=== PATIENT | male | born 2000 | race American Indian/Alaskan Native ===

== ENCOUNTER 2024-10-24 14:27 | Outpatient (AMB) | payer OTHER, SELFPAY ==
--- NOTE | 2024-10-24 14:30 | A.OFFPC_ITS ---
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: No Accompanied by: Self / Same As Patient Allergies No Known Allergies Allergy (Verified 10/30/24 17:40) Medication List - Last Reconciled 10/30/24 by LETY Gonzalez No Known Home Meds Tobacco use date assessed: 10/24/24 Dental Screening Dental Screen Date: 10/24/24 Did you have a dental visit in the last 12 months?: No Did you have a dental problem in the last 6 months where you did not have access to dental care?: No Was dental information given to patient?: Patient has dentist HPI 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 HPI Details Previous PCP: A while, last time 2016 Last visit: 2016 Last PE: 2021 Specialist: Orthopedics-a while ago because of torn hamstrings OBGYN:n/a Past medical history:n/a psh: 3 slip disc, spinal fx and spinal compression in high school, reports that he had PT from a sport medicine physician Medications:n/a Family HX: Maternal aunt has breast, and mother has cancer from drinking but he is not sure what type Reports that his father is currently being checked for lewy body, last time he heard, but the dx is not confirmed Problem: Lower back pain, reports that he thinks that he has a slip disc, and muscle strain reports that he was lifting weights and felt a pop after putting the weight down He went the ER, and was given 2 or 3 shots and was told him to rest for a week and to see how he felt He was able to standup, which he was having problems doing after the injury, so he went back to work and has been doing fine Reports that he went to a hospital in [place], but does not know the name Left knee injury: Injured playing basketball when he was in high school. Reports hearing a pop sound, but did not get this checked out. Over the years, he gets pain in the knee on and off, it swells intermittently and at times feel like it is going to give out. 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 +ROM, no swelling, but pain with lifting and punching. [facility] Surgical History No pertinent past surgical history Family History Mother Cancer Substance use disorder Father No problems noted. Other Breast cancer in situ Cancer with unknown primary site Social History (Updated 10/24/24 @ 14:38 by Rachell Vazquez [facility]) Housing: Apartment Alcohol intake: current Alcohol intake frequency: a few times a week Alcohol type: beer Patient Tobacco Use Status: Current someday Tobacco user Tobacco use type: Smokeless Tobacco e-Cigarette/Vaping Use: Former Use Second Hand Smoke Exposure: No service: No Current occupational status: unemployed Cognitive needs: No Hearing needs: No Vision needs: No Questionnaire PHQ-9 Over the last 2 weeks, how often have you been bothered by any of the following problems? 1. Little interest or pleasure in doing things: not at all 2. Feeling down, depressed, or hopeless: not at all 3. Trouble falling or staying asleep, or sleeping too much: not at all 4. Feeling tired or having little energy: not at all 5. Poor appetite or overeating: not at all 6. Feeling bad about yourself - or that you are a failure or have let yourself or your family down: not at all 7. Trouble concentrating on things, such as reading the newspaper or watching television: not at all 8. Moving or speaking so slowly that other people could have noticed. Or the opposite - being so fidgety or restless that you have been moving around a lot more than usual: not at all 9. Thoughts that you would be better off or of hurting yourself in some way: not at all Total score: 0 Depression Screening Interpretation: Negative Depression Screening Done: Yes 18993 - PHQ-9 Billing: Yes Source: Developed by Drs. Baron Damico, Jenny Carpenter, Vipul Vásquez and colleagues, with an educational porsche from [employer]. Thrive Questionnaire Date Thrive assessed: 10/24/24 I am a: Patient What is your living situation today?: I have a steady place to live Within the past 12 months, did the food you bought not last and you didn't have the money to get more?: Never true Within the past 12 months, did you worry whether your food would run out before you got money to buy more?: Never true Do you have trouble paying for medicines?: No Do you have trouble getting transportation to medical appointments?: No Do you have trouble paying your heating and electricity bill?: No Do you have trouble taking care of your child, family member or friend?: No Do you have trouble with day-to-day activities such as bathing, preparing meals, shopping, managing finances, etc.?: No Are you currently unemployed and looking for a job?: No Are you interested in more education?: No Please select the resources that you would like help with: None Currently or been in a relationship where the following occur: No concerns reported THRIVE Score: 0 AUDIT C Alcohol Use Questionnaire (AUDIT-C) 1. How often do you have a drink containing alcohol?: 2-4 times a month 2. How many drinks containing alcohol do you have on a typical day when you are drinking?: 1 or 2 3. How often do you have six or more drinks on one occasion?: Less than monthly Total Score: 3 DERECK-7 AMB Questionnaire DERECK-7 Date DERECK - 7 assessed: 10/24/24 Feeling nervous, anxious, or on edge: 0 = Not at all Not being able to stop or control worryin = Not at all Worrying too much about different things: 0 = Not at all Trouble relaxin = Not at all Being so restless that it is hard to sit still: 0 = Not at all Becoming easily annoyed or irritable: 0 = Not at all Feeling afraid as if something awful might happen: 0 = Not at all Total DERECK-7 score (0-4 normal; 5-9 mild; 10-14 moderate; 15-21 severe): 0 Source: Developed by Drs. Baron Damico, Jenny Carpenter, Vipul Vásquez and colleagues, with an educational porsche from [employer] DERECK-7 Assessment Billing DERECK-7 Assessment Tool: DERECK-7 Assessment 00051 Review of Systems Const Denies headache(s) Eyes Denies loss of vision ENT Denies vertigo, Denies dizziness, Denies headache(s) and Denies sore throat Card Denies chest pain, Denies leg edema and Denies lightheadedness Resp Denies cough, Denies hemoptysis and Denies wheezing GI Denies abdominal pain, Denies melena, Denies constipation, Denies diarrhea and Denies vomiting Denies dysuria, Denies urinary frequency and Denies urinary urgency Musc Reports back pain, Reports arthralgias (Left knee and right wrist), Reports joint swelling (Left knee on and off), Denies numbness and Denies tingling Skin/Breast Denies lesions and Denies rash Neuro Denies Abnormal speech present, Denies behavioral changes, Denies vertigo, Denies dizziness, Denies headache(s), Denies loss of vision, Denies memory loss, Denies numbness and Denies tingling Psych Denies anxiety, Denies behavioral changes, Denies depression, Denies memory loss and Denies panic attacks Sedrick/Lymph Denies easy bleeding and Denies easy bruising Aller/Immun Denies wheezing Physical exam (Primary Care) Vital Signs: Last Vital Signs Temp 98.4 F 10/24/24 14:34 Pulse 94 10/24/24 14:34 BP 126/80 10/24/24 14:34 Pulse Ox 97 10/24/24 14:34 Oxygen Delivery Method Room Air 10/24/24 14:34 BMI result Body Mass Index 27.8 Tobacco/Smoking Status: Tobacco use Status Tobacco use date assessed 10/24/24 10/24/24 14:42 Patient Tobacco Use Status Current someday Tobacco 10/24/24 14:42 Tobacco use type Smokeless Tobacco 10/24/24 14:42 e-Cigarette/Vaping Use Former Use 10/24/24 14:42 PHQ-9: PHQ-9 Score PHQ-9: Total score 0 10/24/24 14:54 Depression Screening Interpretation: Negative Thrive Assessment: Date of Thrive Assessment Date Thrive assessed 10/24/24 10/24/24 14:33 Currently or been in a relationship where the following occur: No concerns reported Const General: healthy appearing, no acute distress, alert and awake Nutritional Appearance: well nourished Orientation/consciousness: oriented to person, oriented to place and oriented to time HENMT Ears: TM's normal bilaterally General nose exam: Normal nasal mucous membranes and turbinates present Eyes Conjunctivae: conjunctivae normal Sclerae: sclerae normal Pupils: Equal, round and reactive pupils present Neck Neck: Yes no lymphadenopathy and Yes no JVD Thyroid: Thyroid normal Carotids: no bruits Resp Effort & Inspection: normal respiratory effort and not tachypneic Auscultation: no crackles, no rales, no rhonchi and no wheezes Cardio Rate: regular rate Rhythm: regular rhythm Heart sounds: no murmurs and normal S1 and S2 GI Palpation (GI): Soft to palpation, nontender, no hepatomegaly and no splenomegaly Auscultation: normal bowel sounds General: Yes no CVA tenderness Back/Spine/Pelvis Back: no CVA tenderness Thoracic/Lumbar Spine: No thoracic spinal tenderness and No lumbar spinal tenderness Skin General skin exam: no rashes or lesions noted and dry skin Neuro General: oriented to person, oriented to place and oriented to time Cranial nerves: Yes Equal, round and reactive pupils present Speech: No Abnormal speech present Gait exam (Neuro): Normal gait present Motor exam (neuro): no tremor noted Extrem Right upper extremity: full ROM and wrist Details: normal ROM; no tenderness, no swelling, no unusual warmth and no crepitus Left upper extremity: full ROM Right lower extremity: full ROM; no edema Left lower extremity: full ROM and knee Details: normal ROM; no tenderness and no swelling; no edema Psych Mental Status: mental status grossly normal Speech and movement: Normal speech and movement present Affect: normal affect Attitude: cooperative Thought process: Normal thought process present Coding Level of Care Code New Pt Level 3 (05187) Diagnoses Bilateral low back pain without sciatica, unspecified chronicity M54.50 Back pain laterality: bilateral Back pain location: low back pain Chronicity: unspecified Sciatica presence: without sciatica Right wrist pain M25.531 Chronic pain of left knee M25.562; G89.29 Chronicity: chronic Additional Codes PHQ-9 - 03221 - PHQ-9 Billing: Yes ([id number]) DERECK-7 Assessment Billing - DERECK-7 Assessment Tool: DERECK-7 Assessment 89424 ([id number]) Time Spent (min) 36 Assessment & Plan Assessment & Plan (1) Back pain: Code(s): M54.9 - Dorsalgia, unspecified Category: Medical Qualifiers: Back pain laterality: bilateral Back pain location: low back pain Chronicity: unspecified Sciatica presence: without sciatica Qualified Code(s): M54.50 - Low back pain, unspecified Plan: Avoid bed rest (including sitting in bed) and to simply limit painful activities; improvement usually occurs within a few weeks May use cool packs; may alternate cold and hot packs Exercises a otero (e.g., walking, swimming, cycling) as soon as possible, starting with 5-10 min and walk-in up to 20-30 minute q.day Abdominal core and back strengthening exercises may help to prevent future problems (2) Right wrist pain: Code(s): M25.531 - Pain in right wrist Category: Medical Plan: We will do an x-ray to further evaluate (3) Left knee pain: Code(s): M25.562 - Pain in left knee Category: Medical Qualifiers: Chronicity: chronic Qualified Code(s): M25.562 - Pain in left knee; G89.29 - Other chronic pain Plan: We will do an x-ray to further evaluate Plan Ordered labs and advise. Return in 6 weeks for annual physical Orders: Orders Complete Blood Count Auto Diff 10/24/24 Z00. - Encounter for general adult medical examination without abnormal findings Comprehensive [place]. Panel Fast 10/24/24 Z. - Encounter for general adult medical examination without abnormal findings Lipid Panel 10/24/24 Z. - Encounter for general adult medical examination without abnormal findings TSH reflex Free T4 10/24/24 Z. - Encounter for general adult medical examination without abnormal findings Vitamin D 25-OH Total 10/24/24 Z. - Encounter for general adult medical examination without abnormal findings CT NG by PCR 10/24/24 Z00. - Encounter for general adult medical examination without abnormal findings, Z11.3 - Encounter for screening for infections with a predominantly sexual mode of transmission UA CC w/rflx Micro + Cult 10/24/24 Z. - Encounter for general adult medical examination without abnormal findings HIV Ab/Ag 10/24/24 Z. - Encounter for general adult medical examination without abnormal findings Syphilis Screen 10/24/24 Z00. - Encounter for general adult medical examination without abnormal findings XR knee LT 4V 10/24/24 M25.562 - Pain in left knee XR wrist RT min 3V 10/24/24 M25.531 - Pain in right wrist
[2024-10-24 14:34] VITALS: BP 126/80; PULSE 94; TEMP 36.9; O2SAT 97; BMI 27.8
== END 2024-10-24 15:08 | disposition home or self-care (01) ==
LOC: HO.HMCH 14:28
DX: M54.50 Low back pain, unspecified (principal); M25.531 Pain in right wrist; M25.562 Pain in left knee; G89.29 Other chronic pain

== ENCOUNTER → 2024-10-24 14:27 | Outpatient (BNVA) | payer OTHER, SELFPAY | DX: M54.50 Low back pain, unspecified (principal); M25.531 Pain in right wrist; M25.562 Pain in left knee; G89.29 Other chronic pain | CPT/HCPCS: 96127 ==

== ENCOUNTER 2024-11-10 10:21 | Outpatient (REF) | payer OTHER, SELFPAY ==
--- NOTE | ~2024-11-10 | XR_ITS ---
CLINICAL HISTORY: M25.562 - Pain in left knee 4 view left knee Comparison: None provided Findings: Bones intact. No dislocations. No significant loss of joint space, osteophytes, or erosions. Small joint effusion. No radiopaque foreign body. IMPRESSION: Small left knee joint effusion. No fracture or malalignment. This document has been electronically signed by: Hira Costello MD on 11/11/2024 09:30:29
--- NOTE | ~2024-11-10 | XR_ITS ---
CLINICAL HISTORY: M25.531 - Pain in right wrist 4 view right wrist Comparison: None provided Findings: No fractures or dislocations. No significant loss of joint space, osteophyte, or erosions. No radiopaque foreign body. IMPRESSION: 1. No acute findings. This document has been electronically signed by: Hira Costello MD on 11/11/2024 09:26:19
[2024-11-10 10:45] LABS: MANUAL DIFF FLAG NO
[2024-11-10 11:18] LABS: Basophils Absolute Auto 0.1 X10*3/uL (0.0-0.2); Basophils Percent Auto 1.4 % (0-2); Eosinophils Absolute Auto 0.1 X10*3/uL (0.0-0.4); Eosinophils Percent Auto 1.6 % (0-4); Hematocrit 42.3 % (42.0-52.0); Imm Gran Abs Auto 0.02 X10*3/uL (0.00-0.03); Imm Gran Pct Auto 0.4 % (0.0-0.4); Lymphocytes Absolute Auto 1.6 X10*3/uL (1.2-4.9); Lymphocytes Percent Auto 33.1 % (20-40); Mean Corpuscular HGB Conc 33.1 g/dl (31.0-36.0); Mean Corpuscular Hemoglobin 27.3 pg (27.0-33.0); Mean Corpuscular Volume 82.6 fL (80.0-98.0); Mean Platelet Volume 12.1 fL (9.4-12.4); Monocytes Absolute Auto 0.6 X10*3/uL (0.1-1.2); Monocytes Percent Auto 11.4 % (2-11); Neutrophils Absolute Auto 2.6 x10*3/uL (2.0-8.3); Neutrophils Percent Auto 52.1 % (45-73); Platelet Count 235 X10*3/uL (160-400); Red Blood Count 5.12 X10*6/uL (4.60-5.80); Red Cell Distribution Width 11.6 % (11.0-16.0); White Blood Count 4.9 X10*3/uL (4.8-10.8)
--- OUTSIDE RECORDS SUMMARY | 2024-11-10 11:53 | XMS_ITS | Clinical Summary ---
Author Organization [facility] Address [address] [place] [address] Care Team Providers Care Sewer Hand Name Role Phone Unavailable Primary Care Provider Unavailabl e Source Comments PLEASE NOTE, if this patient is a minor, it may be UNLAWFUL to discuss sensitive information that is contained in these records (such as FAMILY PLANNING, MENTAL HEALTH or SUBSTANCE ABUSE) with the minor patient's parent or other person without the patient's specific authorization.[facility] Allergies No known active allergies Medications ibuprofen (ADVIL,MOTRIN) 600 mg tablet Take 600 mg by mouth once daily as needed for pain Active melatonin 1 mg/mL liqd Take 1 mL by mouth nightly at bedtime as needed (sleep) 59 mL 11 09/25/2016 Active cephalexin (KEFLEX) 250 mg capsule Take 1 Cap by mouth 4 (four) times daily 28 Cap 01/14/2018 Active Active Problems No known active problems Immunizations Immunization Administration Dates Next Due [facility] HIB 12/10/1999, 9,01/03/1999,11/05 [facility] HPV GARDASIL 03/04/2013 DTAP (DAPTACEL),5 PERTUSSIS ANTIGENS ,03/05/2000,03/11/1999,01/03,1998 Flu, Multi Dose 0.5 ML 02/26/2016 Flu, Preservative Free 07/25/2015 HEP B, PED/ADOL 06/21/1999,1998,1998 HPV, QUADRIVALENT 07/25/2015,01/18/2015 Hep A, Ped/adol, 2 Dose 01/18/2015,03/04/2013 IPV (IPOL) 06/19/2003, 0,01/03/1999,11/05 MENINGOCOCCAL MCV4P (MENACTRA) 07/25/2015,2014 MENINGOCOCCAL VACCINE,CONJUG ATE (NON-INTERFACE) 04/11/2011 MMR (MMR II/Priorix) 06/19/2003,12/10/1999 TDAP 01/23/2011 Varicella (Varivax), Live Vaccine 01/23/2011,03/2000 Family History Medical History Relation Name Comments High Cholesterol Father Cancer Mother Hypertension Mother Relation Name Status Comments Father Alive Mother Alive Social History Tobacco Use Types Packs/Day Years Used Date Smoking Tobacco: Never Smokeless Tobacco: Never Tobacco Cessation:Counseling Given: No Alcohol Use Standard Drinks/Week Comments No 0 (1 standard drink = 0.6 oz pur e alcohol) Social Connections Answer Date Recorded Social Connections and Isolation 0 01/15/2019 Financial Resource Strain Answer Date R ecorded Financial Resource Strain 0 2018 Stress Answer Date Recorded Stress 0 01/15/2019 Physical Activity Answer Date Recorded Physical Activity 0 01/15/2019 Food Insecurity Answer Date Recorded Food 0 01/15/2019 Transportation Needs Answer Date Record ed Transportation 0 01/15/2019 Housing Stability Answer Date Recorded Housing 0 01/15/2019 Safety and Environment Answer Date Ronan rded Safety 0 01/15/2019 Utilities Answer Date Recorded Utilities 0 01/15/2019 Employment Answer Date Recorded Employment 0 01/15/2019 Sex and Gender Information Value Date Recorded Sex Assigned at Not on file Legal Sex Male 4:50 PM PDT Gender Identity Not on file Sexual Orientation Not on file Last Filed Vital Signs Vital Sign Reading Time Taken Comments Blood Pressure 126/76 01/14/2018 3:27 PM EDT Pulse 55 01/14/2018 3:27 PM EDT Temperature 36.7 C (98 F) 01/14/2018 3:27 PM EDT Respiratory Rate - - Oxygen Saturation 100% 01/14/2018 3:27 PM EDT Inhaled Oxygen Concentration - - Weight 70.4 kg (155 lb 3.2 oz) 01/14/2018 3:27 P M EDT Height 166.6 cm (5' 5.6 ) 09/25/2016 2:44 PM EDT Body Mass Index 25.36 09/25/2016 2:44 PM EDT Plan of Treatment Not on file
[2024-11-10 12:11] LABS: Alanine Aminotransferase 35 U/L (0-40); Albumin Level 4.7 g/dL (3.5-5.0); Alkaline Phosphatase 69 U/L (39-117); Anion Gap 9 (12-20); Aspartate Amino Transferase 37 U/L (5-37); Bilirubin Total 1.6 mg/dL (0.0-1.0); Blood Urea Nitrogen 18 mg/dL (9-16); Calcium 9.8 mg/dL (8.4-10.2); Carbon Dioxide 29 mmol/L (22-29); Chloride 108 mmol/L (96-108); Cholesterol 157 mg/dL (<200); Estimated Glomerular Filt Rate > 60; Glucose Fasting 93 mg/dL (60-99); HDL Cholesterol 68 mg/dL (>40); LDL Cholesterol Calculated 81 mg/dL (<100); Potassium 5.1 mmol/L (3.3-5.1); Sodium 141 mmol/L (135-145); Total Protein 6.9 g/dL (6.5-8.0); Triglycerides 44 mg/dL (<150)
[2024-11-10 12:14] LABS: Syphilis Screen Nonreactive (Nonreactive)
[2024-11-10 12:16] LABS: HIV AB/AG Nonreactive (Nonreactive); HIV Num 1 0.06 S/CO (0.00-0.99)
[2024-11-10 12:30] LABS: TSH reflex Free T4 1.31 uIU/mL (0.32-4.0); Vitamin D 25-OH Total 34.5 ng/mL (>30)
[2024-11-10 12:52] LABS: Appearance Urine Clear; Color Urine Yellow; Glucose Urine UA Negative (Negative); Leukocyte Esterase Urine Negative (Negative); Nitrite Urine Negative (Negative); Specific Gravity - Urine >= 1.030 (1.005-1.025); Urine Blood Negative (Negative); Urine Ketones Trace mg/dL (Negative); Urine Protein Negative (Neg-Trace)
[2024-11-10 13:57] LABS: CT PCR NOT DETECTED (Not Detect.); NG PCR NOT DETECTED (Not Detect.)
== END 2024-11-10 10:22 | disposition home or self-care (01) ==
LOC: HO.XRAY 10:21
DX: Z00.00 Encounter for general adult medical examination without abnormal findings (principal); M25.531 Pain in right wrist; M25.562 Pain in left knee; Z13.6 Encounter for screening for cardiovascular disorders
CPT/HCPCS: 73110; 73564; 80053; 80061; 81003; 82306; 84443; 85025; 86780; 87389; 87491; 87591

== ENCOUNTER → 2024-11-10 10:48 | Outpatient (BNV) | payer OTHER, SELFPAY | PROVIDERS: Visit Provider Radiology Vascular & Interventional Radiology | DX: M25.462 Effusion, left knee (principal); M25.531 Pain in right wrist | CPT/HCPCS: 73110; 73564 ==

== ENCOUNTER 2024-12-16 13:28 | Outpatient (AMB) | payer OTHER, SELFPAY ==
--- NOTE | 2024-12-16 13:32 | A.OFFPC_ITS ---
Vital Signs 12/16/24 13:34 Height 5 ft 7.13 in Weight 185 lb 4 oz BMI 28.9 BP 130/82 Blood Pressure Location Lt brachial Position Sitting Pulse 81 Pulse Source Pulse Oximeter Temp Source Temporal Artery Scan Pulse Oximetry (%) 98 Oxygen Delivery Method Room Air Oxygen Flow Rate 98 Intake Visit Reasons: annual physical Loom Inspector Required: No Accompanied by: Self / Same As Patient Allergies No Known Allergies Allergy (Verified 12/16/24 13:43) Medication List - Last Reconciled 12/16/24 by LETY Gonzalez No Known Home Meds Tobacco use date assessed: 12/16/24 Dental Screening Dental Screen Date: 12/16/24 Did you have a dental visit in the last 12 months?: No Did you have a dental problem in the last 6 months where you did not have access to dental care?: No Was dental information given to patient?: No (pt need dental info) HPI annual physical HPI Details Patient is presenting for annual physical Recent labs and xrays reviewed Dentist: working on finding a doctor Eye: Has not had this checked in a while. 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 The patient is a 24-year-old male presenting for annual physical. Concerns regarding wrist pain and elevated bilirubin levels. The patient reports wrist pain, which prompted an x-ray examination to determine the cause of discomfort. The x-ray was performed on the right wrist, and the patient expressed concern about whether the entire wrist was adequately imaged due to the negative finding. The patient is considering a referral to a hand specialist for further evaluation and management of the wrist pain. The patient also reports a small left knee joint effusion, which is associated with inflammation due to small effusion noted on xray. The patient has not reported any significant pain or functional limitations related to the knee effusion. Laboratory tests revealed elevated bilirubin levels, which may indicate increased breakdown of red blood cells or potential liver involvement. The patient denies excessive alcohol consumption and reports no significant use of medications that could affect liver function. An abdominal ultrasound is planned to further evaluate abdomen due to the feeling of epigastric tenderness with palpation of RUQ. Exam: epigastric pain with palpation to the RUQ Wrist pain-xray negative. 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 Other Breast cancer in situ Cancer with unknown primary site Social History (Updated 12/16/24 @ 13:40 by Cristiano Carolina MA) Household Members: Spouse Housing: Apartment Are you a primary outdoor emergency care technician to a significant other at home: No Do you presently have visiting nurse or other home services: No Alcohol intake: current Alcohol intake frequency: a few times a week Alcohol type: beer Patient Tobacco Use Status: Current someday Tobacco user Tobacco use type: Smokeless Tobacco e-Cigarette/Vaping Use: Former Use Second Hand Smoke Exposure: No service: No Current occupational status: unemployed Cognitive needs: No Hearing needs: No Vision needs: No Questionnaire Thrive Questionnaire Date Thrive assessed: 12/16/24 I am a: Patient What is your living situation today?: I have a steady place to live Within the past 12 months, did the food you bought not last and you didn't have the money to get more?: Never true Within the past 12 months, did you worry whether your food would run out before you got money to buy more?: Never true Do you have trouble paying for medicines?: No Do you have trouble getting transportation to medical appointments?: No Do you have trouble paying your heating and electricity bill?: No Do you have trouble taking care of your child, family member or friend?: No Do you have trouble with day-to-day activities such as bathing, preparing meals, shopping, managing finances, etc.?: No Are you currently unemployed and looking for a job?: No Are you interested in more education?: No Please select the resources that you would like help with: None Currently or been in a relationship where the following occur: No concerns reported THRIVE Score: 0 DERECK-7 AMB Questionnaire DERECK-7 Date DERECK - 7 assessed: 12/16/24 Source: Developed by Drs. Baron Damico, Jenny Carpenter, Vipul Vásquez and colleagues, with an educational porsche from [employer]. Review of Systems Const Denies headache(s) Eyes Denies loss of vision ENT Denies vertigo, Denies dizziness, Denies headache(s) and Denies sore throat Card Denies chest pain, Denies leg edema and Denies lightheadedness Resp Denies cough, Denies hemoptysis and Denies wheezing GI Denies abdominal pain, Denies melena, Denies constipation, Denies diarrhea and Denies vomiting Denies dysuria, Denies urinary frequency and Denies urinary urgency Musc Reports arthralgias (right wrist and left knee), Denies joint swelling, Denies numbness and Denies tingling Skin/Breast Denies lesions and Denies rash Neuro Denies Abnormal speech present, Denies behavioral changes, Denies vertigo, Denies dizziness, Denies headache(s), Denies loss of vision, Denies memory loss, Denies numbness and Denies tingling Psych Denies anxiety, Denies behavioral changes, Denies depression, Denies memory loss and Denies panic attacks Sedrick/Lymph Denies easy bleeding and Denies easy bruising Aller/Immun Denies wheezing Physical exam (Primary Care) Vital Signs: Last Vital Signs Pulse 81 12/16/24 13:34 BP 130/82 12/16/24 13:34 Pulse Ox 98 12/16/24 13:34 Oxygen Delivery Method Room Air 12/16/24 13:34 Oxygen Flow Rate 98 12/16/24 13:34 BMI result Body Mass Index 28.9 Tobacco/Smoking Status: Tobacco use Status Tobacco use date assessed 12/16/24 12/16/24 13:35 Patient Tobacco Use Status Current someday Tobacco 12/16/24 13:40 Tobacco use type Smokeless Tobacco 12/16/24 13:40 e-Cigarette/Vaping Use Former Use 12/16/24 13:40 Thrive Assessment: Date of Thrive Assessment Date Thrive assessed 12/16/24 12/16/24 13:33 Currently or been in a relationship where the following occur: No concerns reported Const General: healthy appearing, no acute distress, alert and awake Nutritional Appearance: well nourished Orientation/consciousness: oriented to person, oriented to place and oriented to time HENMT Ears: TM's normal bilaterally General nose exam: Normal nasal mucous membranes and turbinates present Eyes Conjunctivae: conjunctivae normal Sclerae: sclerae normal Pupils: Equal, round and reactive pupils present Neck Neck: Yes no lymphadenopathy and Yes no JVD Thyroid: Thyroid normal Carotids: no bruits Resp Effort & Inspection: normal respiratory effort and not tachypneic Auscultation: no crackles, no rales, no rhonchi and no wheezes Cardio Rate: regular rate Rhythm: regular rhythm Heart sounds: no murmurs and normal S1 and S2 GI Palpation (GI): Soft to palpation, Tenderness to palpation present (GI) in the epigastrum (with palpation of RUQ), no hepatomegaly and no splenomegaly Auscultation: normal bowel sounds General: Yes no CVA tenderness Back/Spine/Pelvis Back: no CVA tenderness Skin General skin exam: no rashes or lesions noted and dry skin Neuro General: oriented to person, oriented to place and oriented to time Cranial nerves: Yes Equal, round and reactive pupils present Speech: No Abnormal speech present Gait exam (Neuro): Normal gait present Motor exam (neuro): no tremor noted Deep tendon reflexes (DTR's): Right triceps reflex intensity grade: 2+, Left triceps reflex intensity grade: 2+, Rt Biceps (C5, C6): 2+, Left biceps reflex intensity grade: 2+, Right brachioradialis reflex intensity grade: 2+, Left brachioradialis reflex intensity grade: 2+, Right patellar reflex intensity grade: 2+ and Left patellar reflex intensity grade: 2+ Extrem Right upper extremity: full ROM Left upper extremity: full ROM and wrist (no swelling or erythema) Right lower extremity: full ROM; no edema Left lower extremity: full ROM and knee Details: normal ROM; no tenderness and no swelling; no edema Psych Mental Status: mental status grossly normal Speech and movement: Normal speech and movement present Affect: normal affect Attitude: cooperative Thought process: Normal thought process present Results Reviewed Results Reviewed: Laboratory Tests 11/10/24 11/10/24 10:38 10:43 WBC 4.9 RBC 5.12 Hgb 14.0 Hct 42.3 MCV 82.6 MCH 27.3 MCHC 33.1 RDW 11.6 Plt Count 235 MPV 12.1 Immature Gran % (Auto) 0.4 Sodium 141 Potassium 5.1 Chloride 108 Carbon Dioxide 29 Anion Gap 9 L BUN 18 H Creatinine 1.22 Estimated GFR > 60 Fasting Glucose 93 Calcium 9.8 Total Bilirubin 1.6 H AST 37 ALT 35 Alkaline Phosphatase 69 Total Protein 6.9 Albumin 4.7 Triglycerides 44 Cholesterol 157 LDL Cholesterol, Calc 81 HDL Cholesterol 68 25-OH Vitamin D Total 34.5 TSH 1.31 Urine Color Yellow Urine Appearance Clear Urine pH 6.0 Ur Specific [place] >= 1.030 H Urine Protein Negative Urine Glucose (UA) Negative Urine Ketones Trace Urine Blood Negative Urine Nitrite Negative Ur Leukocyte Esterase Negative Coding Level of Care Code Est Pt Prev Care 18-39y([id number]) Diagnoses Annual physical exam Z00.00 Chronic pain of left knee M25.562; G89.29 Chronicity: chronic Right wrist pain M25.531 Epigastric abdominal pain R10.13 Time Spent (min) 37 Assessment & Plan Assessment & Plan (1) Annual physical exam: Code(s): Z00.00 - Encounter for general adult medical examination without abnormal findings Category: Medical Plan: PREVENTATIVE GUIDELINES AND RECENT LABS REVIEWED WITH THE PATIENT (2) Left knee pain: Code(s): M25.562 - Pain in left knee Category: Medical Qualifiers: Chronicity: chronic Qualified Code(s): M25.562 - Pain in left knee; G89.29 - Other chronic pain Plan: Left knee x-ray completed on 11/11/24 showed small left knee effusion. No fracture or malignancy. Pain has been mild in nature. 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 with punching Right wrist x-ray showed no acute findings on 10/2024 Patient was referred to orthopedics/hand specialist for further evaluation (4) Epigastric abdominal pain: Code(s): R10.13 - Epigastric pain Category: Medical Plan: On abdominal exam The patient complained of epigastric tenderness with palpation of right upper quadrant Abdominal ultrasound ordered to further evaluate Orders: Orders Lipid Panel 1 Year Z00.00 - Encounter for general adult medical examination without abnormal findings Vitamin D 25-OH Total 1 Year Z00.00 - Encounter for general adult medical examination without abnormal findings US abdomen complete Today R10.13 - Epigastric pain Complete Blood Count Auto Diff 1 Year Z00.00 - Encounter for general adult medical examination without abnormal findings Comprehensive [place]. Panel Fast 1 Year Z00.00 - Encounter for general adult medical examination without abnormal findings UA CC w/rflx Micro + Cult 1 Year Z00.00 - Encounter for general adult medical examination without abnormal findings TSH reflex Free T4 1 Year Z00.00 - Encounter for general adult medical examination without abnormal findings Referrals Orthopedics Referral M25.531 - Pain in right wrist
--- OUTSIDE RECORDS SUMMARY | 2024-12-16 13:33 | XMS_ITS | Clinical Summary ---
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 Active ibuprofen (ADVIL,MOTRIN) 600 MG tablet Take 600 mg by mouth daily as needed. Active tiZANidine (ZANAFLEX) 4 MG tablet Take 1 tablet (4 mg total) by mouth every 6 (six) hours as needed. 20 tablet 05/23/2024 Active oxyCODONE 5 MG immediate release tablet Take 1 tablet (5 mg total) by mouth every 6 (six) hours as needed. Partial fill ok 10 tablet 05/23/2024 Active diclofenac epolamine (FLECTOR) 1.3 % PT12 Place 1 patch onto the skin 2 (two) times a day. 20 patch 05/23/2024 Active Active Problems Problem Noted Date Diagnosed Date Protrusion of lumbar intervertebral disc 017 Immunizations Immunization Administration Dates Next Due IPV 06/19/2003,03/05/2000,01/03/1999 ,1998 Tdap 01/23/2011 Family History Medical History Relation Comments Hyperlipidemia Father Cancer Mother Hypertension Mother Hyperlipidemia Paternal Grandmother Cancer Sister Relation Status Comments Father Mother Alive Paternal Grandmother Sister Social History Tobacco Use Types Packs/Day Years Used Date Smoking Tobacco: Never Smokeless Tobacco: Current Alcohol Use Standard Drinks/Week Comments Yes 0 (1 standard drink = 0.6 oz pur e alcohol) occasionally Education Answer Date Recorded Are you interested in more education? Not on isrrael e 09/19/2022 Are you concerned about learning? Not on file 09/19/2022 No 09/19/2022 No 09/19/2022 Digital Access Answer Date Recorded No 10/20/2022 No 10/20/2022 Reliable internet access at home? Not on file 10/20/2022 Device with a working camera? Not on file Intimate Partner Violence Answer Date R ecorded Are you denied basic needs s uch as food, clothing, or medical care? No 05/22/2024 In the past 12 months have y ou been in a relationship with a person who hurts, threatens, or tries to control you? No 05/22/2024 Are you denied basic needs s uch as food, clothing, or medical care? No 05/22/2024 In the past 12 months have y ou been in a relationship with a person who hurts, threatens, or tries to control you? No 05/22/2024 Sex and Gender Information Value Date Recorded Sex Assigned at Not on file Legal Sex Male 2:09 PM EDT Gender Identity Not on file Sexual Orientation Not on file Last Filed Vital Signs Vital Sign Reading Time Taken Comments Blood Pressure 128/78 05/23/2024 12:24 AM EST Pulse 60 05/23/2024 12:24 AM EST Temperature 36.6 C (97.9 F) 05/23/2024 12:24 AM EST Respiratory Rate 16 05/23/2024 12:24 AM EST Oxygen Saturation 97% 05/23/2024 12:24 AM EST Inhaled Oxygen Concentration - - Weight 91.2 kg (201 lb) 05/22/2024 4:59 PM EST Height 167.6 cm (5' 6 ) 05/22/2024 4:59 PM EST Body Mass Index 32.44 05/22/2024 4:59 PM EST Plan of Treatment Health Maintenance Due Date Last Done Comments DEPRESSION SCREENING 2010 HEPATITIS A VACCINES (2 of 2 - 2-dose series) 07/21/2015 01/18/2015 HPV VACCINES (3 - Male 3-dos e series) 10/17/2015 07/25/2015, 01/18/2015 HEPATITIS C SCREENING 2016 HIV ONE-TIME SCREENING (18-6 5 YEARS) 2016 Adult Td,Tdap Booster 01/23/2021 01/23/2011 COVID-19 VACCINE (2 - 2023-2 5 season) 2024 09/24/2020 MENINGOCOCCAL VACCINES (ACWY) Completed , 01/18/2015 SMOKING STATUS SCREENING (On ce After 26 Yrs) Completed 05/04/2024 HIB VACCINES Aged Out No longer eligi ble based on patient's age to complete this topic MENINGOCOCCAL VACCINES (B) Aged Out N o longer eligible based on patient's age to complete this topic PNEUMOCOCCAL VACCINES (0-49 years) Aged Out No longer eligible b ased on patient's age to complete this topic Medical Devices Not on file Insurance [address] [place], [place] [address] [place], [place] [address]S [facility] Care Teams Molasses Feed Mixer Relationship Specialty Start Date End Date Pcp, Unknown PCP - General 05/22/24 Nelson De La Cruz MD [address] [place] [address] Family Medicine 05/04/24 Additional Source Comments The information contained in this document represents components of the legal health record. It is not the complete legal health record.[facility]
[2024-12-16 13:34] VITALS: BP 130/82; PULSE 81; O2SAT 98; BMI 28.9
== END 2024-12-16 14:14 | disposition home or self-care (01) ==
LOC: HO.HMCH 13:29
DX: Z00.00 Encounter for general adult medical examination without abnormal findings (principal); M25.562 Pain in left knee; G89.29 Other chronic pain; M25.531 Pain in right wrist; R10.13 Epigastric pain

== ENCOUNTER 2024-12-23 12:27 | Outpatient (REF) | payer OTHER, SELFPAY ==
--- NOTE | ~2024-12-23 | US_ITS ---
EXAMINATION: US ABDOMEN COMPLETE CLINICAL INFORMATION: Epigastric pain.. COMPARISON: None available. TECHNIQUE: Real-time ultrasound of the abdomen using grayscale technique. FINDINGS: PANCREAS: No peripancreatic fluid collections. ABDOMINAL AORTA: The proximal, mid, and distal segments are normal in caliber. INFERIOR VENA CAVA: Visualized portions are normal. LIVER: Liver measures 15 cm by the technologist. No nodular contour. Increased echotexture. No solid or cystic lesion detected by the technologist. Main portal vein is patent with normal hepatopedal flow direction. GALLBLADDER: Fluid-filled. No pericholecystic fluid collection or gallbladder wall thickening. No distention. COMMON BILE DUCT: 2 mm. RIGHT KIDNEY: 11 cm. Normal echotexture. Normal renal cortical thickness. No hydronephrosis. No solid or cystic lesion.. LEFT KIDNEY: 12 cm. Normal echotexture. Normal renal cortical thickness. No hydronephrosis. No gross solid or cystic lesion detected.. SPLEEN: 10 cm. No focal lesion.. FREE FLUID: None. US/US abdomen complete IMPRESSION: No cholelithiasis or choledocholithiasis. Hepatic steatosis. No hydronephrosis. No ascites. Electronically signed by: Ho Lagos MD 12/23/2024 01:18 PM EDT
== END 2024-12-23 12:28 | disposition home or self-care (01) ==
LOC: HO.US 12:27
DX: R10.13 Epigastric pain (principal)
CPT/HCPCS: 76700

== ENCOUNTER → 2024-12-23 12:29 | Outpatient (BNV) | payer OTHER, SELFPAY | PROVIDERS: Visit Provider Radiology Diagnostic Radiology | DX: K76.0 Fatty (change of) liver, not elsewhere classified (principal) | CPT/HCPCS: 76700 ==

== ENCOUNTER 2025-01-27 13:48 | Outpatient (AMB) | payer OTHER, SELFPAY ==
[2025-01-27 13:55] VITALS: BMI 29.0
--- NOTE | 2025-01-27 13:55 | A.OFFVIS_ITS ---
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 Patient was referred by his PCP due to ongoing pain in his wrist that presented in October. Patient reports pain in his wrist and CMC with performing hook punches. He complains of numbness in his hand, as well as tingling with punching. No previous treatment. He mentions fractures in both wrist in high school. 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 Patient was referred by his PCP due to ongoing pain in his wrist that presented in October. Patient reports pain in his wrist and CMC with performing hook punches. He complains of numbness in his hand, as well as tingling with punching. No previous treatment. He mentions fractures in both wrist in high school. [facility] Surgical History No pertinent past surgical history Family History Mother Cancer Substance use disorder Father No problems noted. Other Breast cancer in situ Cancer with unknown primary site Social History (Updated 01/27/25 @ 14:11 by JARRED Mcgovern) Household Members: Spouse Housing: Apartment Are you a primary health care law specialist to a significant other at home: No Do you presently have visiting nurse or other home services: No Alcohol intake: current Alcohol intake frequency: a few times a week Alcohol type: beer Patient Tobacco Use Status: Current someday Tobacco user Tobacco use type: Smokeless Tobacco e-Cigarette/Vaping Use: Former Use Second Hand Smoke Exposure: No service: No Current occupational status: unemployed 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 Neuro: Normal sensation of the tips of all digits of the right hand at this time Vascular: Cap refill brisk Pain: Minimal tenderness to palpation noted of the dorsal and radial aspect of the right wrist Discomfort with range of motion of the right wrist ROM: Patient is able to make a closed fist and extend all digits of the right hand fully Extension, flexion, pronation, supination of the right wrist full and intact Skin: No lacerations or abrasions. General: No ecchymosis, erythema, or evidence of infection. Psych: Appears grossly normal Affect normal Attitude cooperative Results Reviewed Results Reviewed: X-rays obtained in the office today and independently reviewed by me, Harshil Santana PA-C, demonstrate no fracture or acute bony abnormality of the right hand or wrist. Assessment & Plan Assessment & Plan (1) Tenosynovitis of extensor carpi radialis: Code(s): M65.939 - Unspecified synovitis and tenosynovitis, unspecified forearm Category: Medical Plan 1. Extensor carpi radialis tendinitis of right wrist Patient is educated about this condition Patient is educated about the typical treatment At this time, patient is provided with a Velcro wrist splint to wear when the wrist is particularly bothering him Patient is advised to limit strenuous activity with the right wrist for the next 3-4 weeks Patient is offered referral to occupational therapy, but declines Patient understands this in his amenable to this plan Follow-up as needed Orders: Orders XR wrist RT w scaphoid 01/27/25 M79.641 - Pain in right hand Coding Level of Care Code New Pt Level 3 (17495) Diagnoses Tenosynovitis of extensor carpi radialis M65.939
--- OUTSIDE RECORDS SUMMARY | 2025-01-27 14:18 | XMS_ITS | Clinical Summary ---
Demographics Address [address] [place], [place] [address] [place] [address] Home Phone Home Phone Mobile Phone Email Address Preferred Language Malagasy Marital Status Single Gnosticist Affiliation Unknown Race White Ethnic Group Not or Lati no Author Organization [facility] Address [address] [place] [address] [place] [address] Phone Care Team Providers Care Beauty Sales Consultant Name Role Phone Nelson De La Cruz MD Unavailable [phone] Pcp, Unknown Primary Care Provider Unavailabl e [...] YEARS) 2016 Adult Td,Tdap Booster 01/23/2021 01/23/2011 INFLUENZA VACCINE (#1) 2024 6, 07/25/2015 COVID-19 VACCINE (2 - 2024-2 6 season) 2025 09/24/2020 MENINGOCOCCAL VACCINES (ACWY) Completed , 01/18/2015 [...] Devices Not on file Insurance S S S S S [facility] Care Teams Beauty Sales Consultant Relationship Specialty Start Date End Date Pcp, Unknown PCP - General 05/22/24 Nelson De La Cruz MD [address] [place] [address] Family Medicine 05/04/24 Additional Source Comments The information contained in this document represents components of the legal health record. It is not the complete legal health record.[facility]
== END 2025-01-27 14:47 | disposition home or self-care (01) ==
LOC: HO.HOS 13:49
DX: M65.931 Unspecified synovitis and tenosynovitis, right forearm (principal)
CPT/HCPCS: 99203

== ENCOUNTER 2025-01-27 13:48 | Outpatient (REF) | payer OTHER, SELFPAY ==
--- NOTE | ~2025-01-27 | XR_ITS ---
EXAMINATION: XR WRIST, RIGHT CLINICAL INFORMATION: M79.641 - Pain in right hand COMPARISON: 11/10/2024. TECHNIQUE: PA, lateral, oblique, and scaphoid views of the right wrist. FINDINGS: Normal bone mineralization. No fracture, dislocation, or suspicious bone lesion. The carpal bones are intact and normally aligned. The joint spaces are normal. No periarticular osteopenia or periarticular erosions present. No blunting of the ulnar styloid noted. Normal soft tissues. XR/XR wrist RT w scaphoid IMPRESSION: Normal right wrist. Electronically signed by: Benjamin Conley MD 01/27/2025 02:22 PM EDT
== END 2025-01-27 13:49 | disposition home or self-care (01) ==
LOC: HO.HOSX 13:48
DX: M65.931 Unspecified synovitis and tenosynovitis, right forearm (principal); M77.8 Other enthesopathies, not elsewhere classified
CPT/HCPCS: 73110

== ENCOUNTER → 2025-01-27 14:03 | Outpatient (BNV) | payer OTHER, SELFPAY | PROVIDERS: Visit Provider Radiology Diagnostic Radiology | DX: M25.531 Pain in right wrist (principal) | CPT/HCPCS: 73110 ==

== ENCOUNTER 2025-03-09 09:17 | Outpatient (REF) | payer OTHER, SELFPAY ==
--- OUTSIDE RECORDS SUMMARY | 2025-02-17 13:08 | XMS_ITS | Encounter Summary ---
Author Organization [facility] Address [facility] [address] [place] [phone] Phone Care Team Providers Care Division Road Supervisor Name Role Phone Nelson De La Cruz MD Unavailable Venkat Rosas NP Primary Care Provider Encounter Details Date Type Department Care Team (Late st Contact Info) Description 02/17/2025 1:08 PM EDT Hospital Encounter [facility] [address] [place] [id number] Obdulia Mckeon, SUPERVISOR SEAMING [address] [place] [address] [email or web address] Social History Tobacco Use Types Packs/Day Years [...] on file Sexual Orientation Not on file Primary [place] Affiliation Erik rosenbaum documented as of this encounter Plan of Treatment Upcoming Encounters Date Type Department Care Team (Late st Contact Info) Description 03/23/2025 9:00 AM EDT Office Visit [facility] [address] [place] [phone] Samara Huber PA-C [address] [place] [address] Orthopedics & Sports Medicine, [facility] [place] [address] [email or web address] documented as of this encounter Procedures Procedure Name Priority Date/Time Associated Diagnosis Comments XR HAND 3 OR MORE VIEWS (LEFT) Urgent/patient waiting 02/17/2025 1:12 PM EDT Pain of left thumb documented in this encounter Results * XR HAND 3 OR MORE VIEWS (LEFT) (02/17/2025 1:12 PM EDT) Anatomical Region Laterality Modality Hand Left Computed Radiogr aphy 02/17/2025 1:30 PM EDT Impressions 02/17/2025 1:30 PM EDT No fracture or dislocation. Narrative 02/17/2025 1:30 PM EDT XR HAND 3 OR MORE VIEWS (LEFT) Referring clinician's provided indication for this examination in Epic: Pain; Trauma COMPARISON: None FINDINGS: No fracture. Normal alignment. Normal joint spaces. Procedure Note Kasi Sanchez MD - 02/17/2025 XR HAND 3 OR MORE VIEWS (LEFT) Referring clinician's provided indication for this examination in Epic:Pain; Trauma COMPARISON: None FINDINGS: No fracture. Normal alignment. Normal joint spaces. IMPRESSION: No fracture or dislocation. us Obdulia Mckeon SUPERVISOR SEAMING IMG XR UPPER EXTREMITY Final Result documented in this encounter Visit Diagnoses Not on filedocumented in this encounter Care Teams Division Road Supervisor Relationship Specialty Start Date End Date Venkat Rosas NP [address] [place] [address] [address] [place] [address] PCP - General Nurse Practitioner 02/17/25 Nelson De La Cruz MD [address] [place] [address] Family Medicine 05/04/24 documented as of this encounter Additional Source Comments The information contained in this document represents components of the legal health record. It is not the complete legal health record.[facility]
--- NOTE | ~2025-03-09 | CT_ITS ---
EXAMINATION: CT ABDOMEN WITH CONTRAST CLINICAL INFORMATION: K 86.9. This is of pancreas, unspecified. COMPARISON: Correlated to December 23, 2024. TECHNIQUE: Contiguous axial thin section helical images of the abdomen were performed following the administration of no oral contrast and 85 mL of Omnipaque 350 intravenous contrast. The data set was reformatted in the coronal and sagittal planes and reviewed on an independent workstation. The exam is performed during the portal venous phase. This CT examination was performed using dose optimization techniques as appropriate, variously including the following: *Automated exposure control *Adjustment of mA and/or kV according to patient size (this includes techniques or standardized protocols for targeted exams where dose is matched to indication/reason for exam; i.e. extremities or head) *Use of iterative reconstruction technique DLP: 205 mGy centimeter. FINDINGS: LUNG BASES: No acute airspace disease or discrete pulmonary nodules. LIVER, GALLBLADDER, AND BILIARY TREE: Liver measures 15 cm. No focal mass. Portal veins, and hepatic veins are patent. No intrahepatic biliary ductal dilatation. Gallbladder is fluid-filled nondistended without pericholecystic fluid collection or gallbladder wall thickening. No extrahepatic biliary ductal dilatation. PANCREAS: No focal mass. No main pancreatic ductal dilatation. No peripancreatic fluid collection. Homogeneous enhancement of the parenchyma. SPLEEN: 9 cm. No focal mass. ADRENAL GLANDS AND KIDNEYS: No nodular lesions. No renal mass. Normal enhancement pattern of the renal parenchyma. No hydronephrosis. No gross nephrolithiasis. BOWEL LOOPS: Abundant stool. No intestinal obstruction pattern. No intestinal wall thickening. Appendix is normal. No pneumatosis intestinalis. No ascites. No pneumoperitoneum. LYMPH NODES: Nonspecific prominent less than 1 cm mesenteric or retroperitoneal lymphadenopathy. VASCULAR: No aneurysm or dissection, abdominal aorta. No gross calcified plaques. BONES: Mark type I sacralization. Rudimentary rib, L1. Spondylosis, L5-S1. CT/CT abdomen w IV con IMPRESSION: No gross pancreatic mass. Fleischner guidelines were followed. Electronically signed by: Ho Lagos MD 03/09/2025 10:20 AM EDT
[2025-03-09] MEDS: iohexoL 350 MG/ML 100 ML INFUS..BTL 85 ML IV (10:04)
--- OUTSIDE RECORDS SUMMARY | 2025-03-09 10:28 | XMS_ITS | Clinical Summary ---
Author Organization [facility] Address [address] [place] [address] Care Team Providers Care Mail Handler Sorter Name Role Phone Unavailable Primary Care Provider [...] Flu, Preservative Free 07/25/2015 HEP B, PED/ADOL ([id number]) 06/21/1999,1998,1998 HPV, QUADRIVALENT 07/25/2015,01/18/2015 Hep A, Ped/adol, [...]
== END 2025-03-09 09:18 | disposition home or self-care (01) ==
LOC: HO.CT 09:17
DX: K86.9 Disease of pancreas, unspecified (principal)
CPT/HCPCS: 74160; Q9967

== ENCOUNTER → 2025-03-09 09:19 | Outpatient (BNV) | payer OTHER, SELFPAY | PROVIDERS: Visit Provider Radiology Diagnostic Radiology | DX: K86.9 Disease of pancreas, unspecified (principal) | CPT/HCPCS: 74160 ==